=== PATIENT | female | born 1960 | race Caucasian/White ===

== ENCOUNTER 2018-09-23 16:11 | Emergency (ER) | payer OTHER, SELFPAY ==
--- NOTE | 2018-09-23 16:42 | ER ---
Nurse's Notes [facility] Name: Chava Abraham Age: 57 yrs Sex: Female : 1960 Arrival Date: 09/23/2018 Time: 16:12 Bed Waiting Private MD: Diagnosis: ED Course: 09/23 16:12 Patient arrived in ED. as 16:41 Wilbur Chong MD is Attending Physician. aa5 Administered Medications: No medications were administered Outcome: 16:41 Patient left the ED. aa5 Signatures: Rebeca Jose Audri, RN RN aa5
== END 2018-09-23 16:41 | disposition left against medical advice (07) ==
LOC: ER 16:11
DX: Z53.21 Procedure and treatment not carried out due to patient leaving prior to being seen by health care provider (principal)